=== PATIENT | male | born 1990 | race Caucasian/White ===

== ENCOUNTER 2024-05-21 12:19 | Outpatient (CLI) | payer MEDICAID, SELFPAY ==
--- NOTE | 2024-05-21 12:27 | XR_ITS ---
FINAL REPORT CLINICAL HISTORY: Shortness of breath, cough COMPARISON: None FINDINGS: 2 views of the chest were obtained. There is a left basilar airspace disease compatible with pneumonia. The right lung is clear. There is no evidence of effusion or other pleural disease. The mediastinum has a normal appearance. The cardiac silhouette is unremarkable. IMPRESSION: Left basilar pneumonia Reviewed, Interpreted and Dictated by Jamie Gomez MD Transcribed by Berenice Florian Authenticated and [facility]
[2024-05-21 12:45] VITALS: BMI 32.4
[2024-05-21 12:48] LABS: Adenovirus,PCR Not Detected (NotDetected); Bordetella Pertussis Not Detected (NotDetected); Chlamydophila Pneumoniae, PCR Not Detected (NotDetected); Coronavirus 19, PCR Not Detected (NotDetected); Coronavirus 229E Not Detected (NotDetected); Coronavirus NL63 Not Detected (NotDetected); Coronavirus OC43 Not Detected (NotDetected); Coronovirus HKU1,PCR Not Detected (NotDetected); Human Metapneumovirus Not Detected (NotDetected); Influenza A, PCR Not Detected (NotDetected); Influenza AH1, 2009 Not Detected (NotDetected); Influenza AH1, PCR Not Detected (NotDetected); Influenza AH3,PCR Not Detected (NotDetected); Influenza B, PCR Not Detected (NotDetected); Parainfluenza 1, PCR Not Detected (NotDetected); Parainfluenza 2, PCR Not Detected (NotDetected); Parainfluenza 3, PCR Not Detected (NotDetected); Parainfluenza 4, PCR Not Detected (NotDetected); Respiratory Syncytial Virus Not Detected (NotDetected); Rhinovirus/Enterovirus Not Detected (NotDetected)
[2024-05-21 13:00] VITALS: BP 138/72; PULSE 118; RESP 22; TEMP 36.9; O2SAT 90
[2024-05-21] MEDS: LACTATED RINGERS 1000ML 1,000 ML 999 ML IV ×2 (13:00→14:00)
[2024-05-21 13:12] LABS: Monoscreen (Rapid) Negative (Negative)
[2024-05-21 13:16] LABS: Alanine Aminotransferase 89 U/L (12-78); Albumin Level 4.3 g/dl (3.5-5.0); Alkaline Phosphatase 134 U/L (38-126); Aspartate Amino Transferase 74 U/L (17-59); Bilirubin,Direct 0.2 mg/dl (0.0-0.4); Bilirubin,Indirect 1.1 mg/dL (0.0-0.9); Bilirubin,Total 1.3 mg/dl (0.2-1.3); Bilirubin,Unconjugated 1.1 mg/dL (0.0-1.1); Blood Urea Nitrogen 15 mg/dl (9-20); Calcium 9.1 mg/dl (8.4-10.2); Carbon Dioxide 23 mmol/L (22.0-30.0); Chloride 104 mmol/L (98-107); Creatinine Clearance Estimated 129 mL/min (50-200); Estimated Glomerular Filt Rate 78 ml/min (>60); GFR (African American) 94 ML/MIN (>60); Glucose 118 mg/dl (74-100); Sodium 140 mmol/L (136-145); Total Protein,Serum 7.9 g/dl (6.3-8.2)
[2024-05-21 13:21] LABS: C-Reactive Protein 189.8 mg/L (0-4)
[2024-05-21 13:23] LABS: D-Dimer 0.97 ug/mL (0.0-0.5)
[2024-05-21] MEDS: ACETAMINOPHEN 500MG TAB 1000 MG PO (13:25)
[2024-05-21 13:30] LABS: Anion Gap 16.6 mEq/L (5-15); NT Pro Brain Natriuretic Pep. 23.2 pg/mL (0-125); Potassium 3.6 mmoL/L (3.5-5.1)
[2024-05-21 13:31] LABS: Troponin I < 0.01 ng/ml (0.00-0.034)
[2024-05-21 13:49] LABS: Thyroid Stimulating Hormone 0.65 uIU/mL (0.465-4.68)
[2024-05-21 13:59] LABS: Basophils % 0.1 % (0.1-2.0); Eosinophils % 0.1 % (0.1-12.0); Hematocrit 44.3 % (42.0-52.0); Lymphocytes # 1.4 K/mm3 (0.7-4.5); Lymphocytes % 8.6 % (10-50); Mean Corpuscular HGB Conc 33.9 g/dL (31.8-35.4); Mean Corpuscular Hemoglobin 29.2 pg (27.0-31.2); Mean Corpuscular Volume 86.2 fl (80-94); Mean Platelet Volume 9.4 fl (7.4-10.4); Monocytes % 3.4 % (1.7-9.3); Neutrophils # 13.9 K/mm3 (1.8-7.8); Neutrophils % 86.9 % (37.0-80.0); Platelet Count 449 K/mm3 (142-424); Red Blood Count 5.14 M/mm3 (4.60-6.20); Red Cell Distribution Width 11.7 % (11.5-17.5)
[2024-05-21 14:00] VITALS: BP 140/75; PULSE 107; RESP 20; O2SAT 89
[2024-05-21 14:00] LABS: MANUAL DIFFERENTIAL MANUAL DIFFERENTIAL (MANUAL DIFF); Monocytes # 0.5 K/mm3 (0.1-1.0)
[2024-05-21 14:12] LABS: Mycoplasma Pneumoniae, PCR Detected (NotDetected)
[2024-05-21 14:22] VITALS: BP 134/73; PULSE 100; O2SAT 90
[2024-05-21 14:37] LABS: Lymphocytes % 11 % (10-50); Monocytes % 2 % (2-9); Neutrophils % 87 % (42-76); Platelet Estimate Slight Increase; RBC Morphology Normal; Total Cells Counted 100
[2024-05-21 14:47] LABS: Free T4 (Free Thyroxine) 1.93 ng/dl (0.78-2.19)
[2024-05-21 15:09] LABS: Erythrocyte Sedimentation Rate 69 mm/hr (0-15)
[2024-05-22 09:09] LABS: Triiodothyronine (T3) Free 2.9 pg/mL (2.0-4.4)
== END 2024-05-21 14:30 | disposition home or self-care (01) ==
LOC: LAB 12:24 → INF 13:00
PROVIDERS: PCP Family Medicine; Visit Provider Internal Medicine
DX: R06.00 Dyspnea, unspecified (principal); R05.9 Cough, unspecified; R50.9 Fever, unspecified
CPT/HCPCS: 36415; 71046; 80048; 80076; 83880; 84439; 84443; 84481; 84484; 85007; 85025; 85378; 85651; 86140; 86318; 87633; 93306; 96360; J7120